=== PATIENT | male | born 1955 ===

== ENCOUNTER 2024-07-28 11:01 | Inpatient (IN) | payer OTHER ==
[~2024-07-28] VITALS: Ht 177.8 cm; Wt 83.5 kg
[2024-07-28] MEDS ORDERED: ZESTRIL40 M1 PO (12:04)
[2024-07-28] MEDS ORDERED: AMLODIPINE-OLM1 EAC3 (12:06)
[2024-07-28 12:09] VITALS: BP 150/84
[2024-08-04] MEDS ORDERED: LIDOCAINE HCL 1%/EPINEPHRINE 20ML VIAL IJ ONE ×2 (14:33→17:45)
[2024-08-04] MEDS ORDERED: BUPIVACAINE HCL/MPF 0.5% 30ML VIAL ONE (14:33)
[2024-08-04] MEDS ORDERED: TRANEXAMIC ACID 100MG/1ML (1000MG) AMPUL IV ONE (14:38)
[2024-08-04] MEDS ORDERED: CEFOXITIN SODIUM 2,000 MG VIAL IV ONE (15:00)
[2024-08-04] MEDS ORDERED: LISINOPRIL40 MG (16:03)
[2024-08-04] MEDS ORDERED: AMLODIPINE BESY10 MG (16:03)
[2024-08-04] MEDS ORDERED: KETOROLAC TROMETHAMINE 60 MG VIAL IM ONE (17:15)
[2024-08-04] MEDS ORDERED: MORPHINE SULFATE 4 MG/ML CARTRIDGE IV PRN (17:45)
[2024-08-04] MEDS ORDERED: BUPIVACAINE HCL 30 ML VIAL IJ ONE (17:45)
[2024-08-04] MEDS ORDERED: MORPHINE SULFATE 2 MG/ML CARTRIDGE IV NR (17:45)
[2024-08-04] MEDS ORDERED: SODIUM CHLORIDE 0.45 % 1,000 ML IV SCH (17:45)
[2024-08-04] MEDS ORDERED: ONDANSETRON HCL 2 MG/ML VIAL IV PRN (17:45)
[2024-08-04] MEDS ORDERED: MORPHINE SULFATE 4 MG/ML VIAL IV ONE (17:45)
[2024-08-04] MEDS ORDERED: CEFAZOLIN SODIUM 1,000 MG VIAL IV SCH (18:00)
[2024-08-04] MEDS ORDERED: CEFAZOLIN SODIUM 1,000 MG VIAL ONE (19:07)
[2024-08-04] MEDS ORDERED: ENALAPRILAT DIHYDRATE 1.25 MG/ML VIAL IV PRN (20:45)
[2024-08-04 20:51] LABS: HEMATOCRIT 44.4 % (39.0-48.0); HEMOGLOBIN 14.6 g/dL (13-16.00); RED BLOOD COUNT 5.13 M/uL (4.00-6.00)
[2024-08-04] MEDS ORDERED: GENTAMICIN SULFATE 40 MG/ML VIAL IV SCH (21:00)
[2024-08-05] MEDS ORDERED: CEFAZOLIN SODIUM 1,000 MG VIAL ONE (02:11)
[2024-08-05 03:34] LABS: HEMATOCRIT 42.5 % (39.0-48.0); MEAN CELL VOLUME 86.9 fL (80.0-100.00); MEAN CORPUSCULAR HEMOGLOBIN 28.5 pg (27.00-32.0); MEAN CORPUSCULAR HGB CONC 32.9 g/dl (32.0-36.0); PLATELET COUNT 282 K/uL (150-450); RED BLOOD COUNT 4.89 M/uL (4.00-6.00); RED CELL DISTRIBUTION WIDTH 13.2 % (11.5-14.5)
[2024-08-05 05:49] VITALS: BP 123/75; O2SAT 95
[2024-08-05 08:00] VITALS: BP 127/77; O2SAT 96
[2024-08-05] MEDS ORDERED: ACETAMINOPHEN WITH CODEINE 1 UDTAB TABLET PO PRN (08:15)
[2024-08-05] MEDS ORDERED: SENNA/DOCUSATE SODIUM 1 TAB TABLET PO SCH (09:00)
[2024-08-05] MEDS ORDERED: BACITRACIN 28.35 GM OINT.TUBE TOP SCH (09:00)
[2024-08-05] MEDS ORDERED: IRON FUM,PS/FOLIC/BCOMP,C NO.9 1 CAP CAPSULE PO SCH (09:00)
[2024-08-05] MEDS ORDERED: AMLODIPINE BESYLATE 10 MG TABLET PO SCH (09:00)
[2024-08-05] MEDS ORDERED: RIVAROXABAN 10 MG TAB PO SCH (09:00)
[2024-08-05] MEDS ORDERED: LISINOPRIL 40 MG TABLET PO SCH (09:00)
[2024-08-05 16:00] VITALS: BP 132/81; O2SAT 95
[2024-08-06 00:25] VITALS: BP 118/76; O2SAT 95
[2024-08-06 05:28] LABS: HEMATOCRIT 45.5 % (39.0-48.0); HEMOGLOBIN 15.1 g/dL (13-16.00); MEAN CELL VOLUME 86.7 fL (80.0-100.00); MEAN CORPUSCULAR HEMOGLOBIN 28.7 pg (27.00-32.0); MEAN CORPUSCULAR HGB CONC 33.1 g/dl (32.0-36.0); PLATELET COUNT 269 K/uL (150-450); RED BLOOD COUNT 5.25 M/uL (4.00-6.00)
[2024-08-06] MEDS ORDERED: ACETAMINOPHEN-1 EAC2 PO (07:37)
[2024-08-06] MEDS ORDERED: XARELTO10 MG PO (07:37)
[2024-08-06] MEDS ORDERED: Septra Ds Tablet PO (07:37)
[2024-08-06 08:00] VITALS: BP 132/77; O2SAT 96
[2024-08-06] MEDS ORDERED: SULFAMETHOXAZOLE/TRIMETHOPRIM DS 1 TAB PO SCH (09:00)
[2024-08-06 11:27] LABS: ALBUMIN 2.8 gm/dL (3.4-5.0); BILIRUBIN TOTAL 1.37 mg/dL (0.3-1.2); CALCIUM 8.8 mg/dL (8.5-10.1); CREATININE SERUM 0.73 mg/dL (0.70-1.30); GFR 106.53; GLOBULINA 3.6 G/DL (2.4-3.5); POTASSIUM 3.88 mEq/L (3.5-5.1); TOTAL PROTEIN 6.4 gm/dL (6.4-8.2)
== END 2024-08-06 17:09 | disposition home or self-care (01) | DRG 470 ==
LOC: O/R 08-04 08:53 → SURH 08-04 09:30 → SURG 08-04 19:09
PROVIDERS: ADMIT Orthopaedic Surgery Sports Medicine; ATTEND Orthopaedic Surgery Sports Medicine
PROC: 0SRB03Z Replacement of Left Hip Joint with Ceramic Synthetic Substitute, Open Approach (ICD-10-PCS; principal; 2024-08-04 09:30)
DX: M16.12 Unilateral primary osteoarthritis, left hip (principal); I10 Essential (primary) hypertension